=== PATIENT | male | born 1950 | race Caucasian/White ===

== ENCOUNTER → 2020-07-14 | Outpatient (CLI) | payer MEDICARE ==
[~2020-07-14] MED LIST: AMLO-211 PO; ASPI81TA45 PO; ATOR80TA PO; CHOL10003 PO; HYDROCHLOROTH12.5 MG PO; LISI40TA9 PO; MELO15TA24 PO; METF500T27 PO; METO25TA91 PO; SEMA3TAB PO; TADA5TAB2 PO; VITA1TAB19 PO
[2020-07-14 10:43] LABS: MICROSCOPIC NOT IND
[2020-07-14 10:53] LABS: BASOPHILS % (AUTO) 0 % (0-1); EOSINOPHILS % (AUTO) 1 % (1-7); LYMPHOCYTES % (AUTO) 22 % (22-44); MEAN CORPUSCULAR HEMOGLOBIN 33.8 pg (27.5-34.5); MEAN PLATELET VOLUME 8.7 fL (7.4-10.4); MONOCYTES % (AUTO) 9 % (2-9); NEUTROPHILS % (AUTO) 67 % (42-75); PLATELET COUNT 149 x10^3/uL (130-400); RED BLOOD COUNT 4.63 x10^6/uL (4.38-5.82); RED CELL DISTRIBUTION WIDTH 12.9 % (9.4-14.8)
[2020-07-14 11:03] LABS: MD NO
[2020-07-14 11:04] LABS: PROTHROMBIN TIME 10.7 Seconds (9.6-11.5)
[2020-07-14 11:05] LABS: CHLORIDE 106 mmol/L (98-107)
[2020-07-14 11:12] LABS: ALANINE AMINOTRANSFERASE 44 U/L (12-78); ALBUMIN 4.1 g/dL (3.4-5.0); ALKALINE PHOSPHATASE 50 U/L (45-117); ANION GAP 6 mmol/L (5-15); BILIRUBIN,TOTAL 0.7 mg/dL (0.2-1.0); CALCIUM 9.6 mg/dL (8.5-10.1); CREATININE 1.05 mg/dL (0.7-1.3); TOTAL PROTEIN 7.4 g/dL (6.4-8.2)
== END | disposition home or self-care (01) ==
LOC: STAR 09:18
PROVIDERS: ATTEND Neurological Surgery
DX: Z01.810 Encounter for preprocedural cardiovascular examination (principal); Z01.811 Encounter for preprocedural respiratory examination; Z01.812 Encounter for preprocedural laboratory examination; R79.1 Abnormal coagulation profile; R82.90 Unspecified abnormal findings in urine; R94.31 Abnormal electrocardiogram [ECG] [EKG]; M54.5 Low back pain; M54.16 Radiculopathy, lumbar region; M47.896 Other spondylosis, lumbar region; Z20.822 Contact with and (suspected) exposure to COVID-19
CPT/HCPCS: 36415; 71046; 80053; 81003; 85025; 85610; 85730; 93005; U0003

== ENCOUNTER 2020-07-18 07:10 | Day surgery (SDC) | payer MEDICARE ==
[~2020-07-18] VITALS: Ht 175.3 cm; Wt 93.9 kg
[~2020-07-18 07:10] MED LIST changes: +BACITRACIN 50,000 UNIT ONE; +BUPIVACAINE 0.25% ONE; +BUPIVACAINE/PF 0.5% ONE; +EPINEPHRINE 1 MG/ML, 1ML ONE; +VANCOMYCIN 1,000 MG ONE
[2020-07-18 07:57] VITALS: BP 160/105
[2020-07-18] MEDS ORDERED: LACTATED RINGERS 1,000 ML IV SCH (08:00)
[2020-07-18] MEDS ORDERED: CHLORHEXIDINE 15 ML UDC PO ONE (08:00)
[2020-07-18] MEDS ORDERED: CHLORHEXIDINE 15 ML UDC ONE (08:04)
[2020-07-18 08:27] VITALS: BP 147/87
[2020-07-18] MEDS ORDERED: FENTANYL PF 100 MCG/2ML ONE ×3 (08:37→12:18)
[2020-07-18] MEDS ORDERED: FENTANYL PF 250 MCG/5ML ONE (08:38)
[2020-07-18] MEDS ORDERED: PROPOFOL 100 ML ONE (08:38)
[2020-07-18] MEDS ORDERED: SUCCINYLCHOLINE 20 MG/ML, 10ML ONE (10:27)
[2020-07-18] MEDS ORDERED: ROCURONIUM 10MG/ML,5ML ONE (10:27)
[2020-07-18] MEDS ORDERED: DEXAMETHASONE 4 MG/ML, 1ML ONE (10:27)
[2020-07-18] MEDS ORDERED: ONDANSETRON 2MG/ML, 2ML ONE (10:27)
[2020-07-18] MEDS ORDERED: CEFAZOLIN 1,000 MG ONE (10:27)
[2020-07-18] MEDS ORDERED: PROPOFOL 10 MG/ML, 20ML ONE (10:27)
[2020-07-18] MEDS ORDERED: BUPIVACAINE LIPOSOME/PF 10ML INFIL ONE (11:08)
[2020-07-18] MEDS ORDERED: BUPIVACAINE/PF 0.25% EPIDPUSH ONE (11:11)
[2020-07-18] MEDS ORDERED: FENTANYL PF 100 MCG/2ML EPIDPUSH ONE (11:12)
[2020-07-18] MEDS ORDERED: morphine SULFATE 10 MG/ML, 1ML IVPush PRN (12:00)
[2020-07-18] MEDS ORDERED: PROMETHAZINE 25 MG SUPP PR PRN (12:00)
[2020-07-18] MEDS ORDERED: LABETALOL 5MG/ML, 20ML IV PRN (12:00)
[2020-07-18] MEDS ORDERED: PROMETHAZINE 25 MG/ML, 1ML IVPush PRN (12:00)
[2020-07-18] MEDS ORDERED: INSULIN REGULAR 100 UNITS/ML, 3ML VIAL SQ-INSULIN PRN (12:00)
[2020-07-18] MEDS ORDERED: HYDROcodone/APAP 5/325 TABLET PO PRN (12:00)
[2020-07-18] MEDS ORDERED: NS + 20MEQ KCL 1,000 ML IV SCH (12:00)
[2020-07-18] MEDS ORDERED: PHARMACY MAY ADJ FOR RENAL FX MC PRN (12:00)
[2020-07-18] MEDS ORDERED: OXYcodone 5 MG/5 ML ORAL.SOL UDC PO PRN (12:00)
[2020-07-18] MEDS ORDERED: METHOCARBAMOL 1,000 MG in DEXTROSE 5% 100 ML IV PRN (12:00)
[2020-07-18] MEDS ORDERED: HYDROmorphone 1 MG/ML, 1ML INJ IVPush PRN (12:00)
[2020-07-18] MEDS ORDERED: DIPHENHYDRAMINE 50 MG/ML, 1ML IVPush PRN (12:00)
[2020-07-18] MEDS ORDERED: LABETALOL 5MG/ML, 20ML IVPush PRN (12:00)
[2020-07-18] MEDS ORDERED: HYDROcodone/APAP 10/325 MG TABLET PO PRN (12:00)
[2020-07-18] MEDS ORDERED: METHOCARBAMOL 750 MG TABLET PO PRN (12:00)
[2020-07-18] MEDS ORDERED: ACETAMINOPHEN 325 MG TABLET PO PRN (12:00)
[2020-07-18] MEDS ORDERED: ONDANSETRON 2MG/ML, 2ML IVPush PRN ×2 (12:00)
[2020-07-18] MEDS ORDERED: CEFAZOLIN PMX 1GM/50ML 50 ML IVPB SCH (12:00)
[2020-07-18] MEDS ORDERED: MEPERIDINE/PF 25MG/0.5ML IVPush PRN (12:00)
[2020-07-18] MEDS ORDERED: PROMETHAZINE 25 MG/ML, 1ML IM PRN (12:00)
[2020-07-18] MEDS ORDERED: ACETAMINOPHEN 650 MG/20.3 ML UDC ONE (12:18)
[2020-07-18] MEDS ORDERED: METHOCARBAMOL 750 MG TABLET ONE (12:18)
[2020-07-18] MEDS ORDERED: OXYcodone 5 MG/5 ML ORAL.SOL UDC ONE (12:19)
[2020-07-18] MEDS: FENTANYL PF 100 MCG/2ML IV PRN ×2 (12:30→12:59)
[2020-07-18] MEDS ORDERED: hydrALAzine 20 MG/ML, 1ML ONE (12:35)
[2020-07-18] MEDS: hydrALAzine 20 MG/ML, 1ML IV PRN ×2 (12:38→12:58)
[2020-07-18] MEDS ORDERED: TEMPLATE NON-FORMULARY MED. (Metformin Hcl** (Metformin Hcl Er**) 1,000 MG) PO SCH (21:00)
[2020-07-18] MEDS ORDERED: ATORVASTATIN 80 MG TABLET PO SCH (21:00)
[2020-07-18] MEDS ORDERED: SODIUM CHLORIDE FLUSH 10ML SYR IVF SCH (21:00)
[2020-07-19] MEDS ORDERED: METOPROLOL SUCCINATE 25 MG TAB.ER.24H PO SCH (09:00)
[2020-07-19] MEDS ORDERED: TEMPLATE NON-FORMULARY MED. (Tadalafil** (Cialis**) 5 MG) PO SCH (09:00)
[2020-07-19] MEDS ORDERED: TEMPLATE NON-FORMULARY MED. (Vitamin B Complex** (B Complex**) 1 TAB) PO SCH (09:00)
[2020-07-19] MEDS ORDERED: AMLODIPINE 10 MG TAB PO SCH (09:00)
[2020-07-19] MEDS ORDERED: MELOXICAM 15 MG TABLET PO SCH (09:00)
[2020-07-19] MEDS ORDERED: CHOLECALCIFEROL 1,000 UNIT TABLET PO SCH (09:00)
[2020-07-19] MEDS ORDERED: SEMAGLUTIDE 3 MG PO SCH (09:00)
[2020-07-19] MEDS ORDERED: HYDROCHLOROTHIAZIDE 12.5 MG CAPSULE PO SCH (09:00)
[2020-07-19] MEDS ORDERED: LISINOPRIL 40 MG TABLET PO SCH (09:00)
== END 2020-07-18 14:50 | disposition home or self-care (01) ==
LOC: EDSEX → INTOOBSV 07:10 → UNDOADMOB 07:10 → SDC 07:10 → ORIP 07:10 → EDSTATUS 14:30 → SDC 14:50 → UNDODISOB 14:50
PROVIDERS: ATTEND Neurological Surgery
DX: M54.16 Radiculopathy, lumbar region (principal); M53.86 Other specified dorsopathies, lumbar region; E11.9 Type 2 diabetes mellitus without complications; I25.2 Old myocardial infarction; I10 Essential (primary) hypertension; I25.10 Atherosclerotic heart disease of native coronary artery without angina pectoris; Z98.890 Other specified postprocedural states; Z79.899 Other long term (current) drug therapy; Z79.82 Long term (current) use of aspirin; Z72.89 Other problems related to lifestyle
CPT/HCPCS: 63047; 63048; 63056; 63057; 72100; 82962; 95938; 95941; J0171; J0330; J0360; J0690; J1100; J2405; J2704; J3010; J3370; J7120; G0378